=== PATIENT | female | born 1975 | race Caucasian/White ===

== ENCOUNTER 2022-04-30 21:32 | Emergency (ER) | payer BC, SELFPAY ==
[2022-04-30 21:35] VITALS: BP 121/92; PULSE 75; RESP 18; TEMP 36.3; O2SAT 97
[2022-04-30] MEDS: LIDOCAINE HCL 1% LOCAL INJ 10 ML VIAL INFILTRATE (21:44)
--- NOTE | 2022-04-30 21:59 | ED_ITS ---
HPI - General Adult General Chief complaint: Wound/Laceration Stated complaint: laceration lip Time Seen by Provider: 04/30/22 21:41 History of Present Illness HPI narrative: Chelle presented to the ED after a point lay ira bar fell off a ladder and hit her just above the lip. She had no other injuries and did not lose consciousness. bleeding has stopped prior to arrival. Related Data Home Medications Medication Instructions Recorded Confirmed No Home Medications 04/30/22 04/30/22 Allergies Allergy/AdvReac Type Severity Reaction Status Date / Time ibuprofen Allergy Other Verified 04/30/22 21:41 Review of Systems Review of Systems: All systems reviewed & are unremarkable except as noted in HPI and below Exam Const: General: healthy appearing, no acute distress and alert Nutritional Appearance: well nourished Orientation/consciousness: patient oriented x3 HENMT: Other: 2 cm horizontal laceration just abover her upper lip Eyes: Conjunctivae: conjunctivae normal Pupils: Equal, round and reactive pupils present Chest: Chest palpation & inspection: normal inspection of the chest Resp: Effort & Inspection: normal respiratory effort Cardio: Rate: regular rate Skin: General skin exam: normal color Neuro: General: patient oriented x3 and moves all extremities Cranial nerves: Yes Nystagmus not present Extrem: Other: no deformity Psych: Mental Status: mental status grossly normal Procedures Laceration Laceration 1: Date: 04/30/22 Time: 22:00 Size (cm): 2 Description: linear Depth: simple, single layer Local Anesthetic: lidocaine 1% Amount of anesthesia used (mL): 1 ====== Skin Level ====== Skin layer closed with: nylon Size (cm): 5-0 Number of sutures: 3 Technique: simple, interrupted ====== Subcutaneous Layer ====== ====== Muscle Layer ====== ====== Tendon Layer ====== Discharge Plan Discharge Clinical Impression: Laceration Patient Disposition: Home, Self-Care Condition: Stable Instructions: Care For Your Stitches (ED) Additional Instructions: Please see your doctor in 7 days to have stitches removed. Prescriptions: No Action No Home Medications Follow-up/Referrals: UNKNOWN,DOCTOR [Primary Care Provider] -
== END 2022-04-30 22:04 | disposition home or self-care (01) ==
PROVIDERS: Emergency Provider Family Medicine
DX: S01.511A Laceration without foreign body of lip, initial encounter (principal); W22.8XXA Striking against or struck by other objects, initial encounter
CPT/HCPCS: 12001; 99282

== ENCOUNTER 2024-08-18 06:52 | Outpatient (CLI) | payer BC, SELFPAY ==
--- NOTE | ~2024-08-18 | NM_ITS ---
EXAMINATION: NM hepatobiliary w pharm DATE: 08/18/2024 09:12 INDICATION: Right upper quadrant abdominal pain. Nausea. COMPARISON: None. TECHNIQUE: 6.1 mCi Tc-99m mebrofenin (Choletec) was administered intravenously. Scintigraphic images of the abdomen were obtained for one hour. Then, 1.1 mcg sincalide (Kinevac) IV was administered, an d imaging was continued for 30 minutes. FINDINGS: There is normal clearance of radiotracer from the blood pool. There is homogeneous tracer u ptake by the liver. Activity progresses to the bowel and gallbladder. Gallbladder ejection fraction (GBEF) was 93%. Note that most patients with gallbladder dysfunction have GBEF < 35%, which overlaps with the broad normal range of 10-90%. IMPRESSION: 1. Normal hepatobiliary scintigraphy. Reviewed, dictated and finalized at location A. [employer]
== END 2024-08-18 06:53 | disposition home or self-care (01) ==
LOC: CHSIMG 06:56
PROVIDERS: PCP Nurse Practitioner; Visit Provider Physician Assistant
DX: R10.11 Right upper quadrant pain (principal)
CPT/HCPCS: 78227; A9537; J2805